=== PATIENT | male | born 1945 | race Caucasian/White ===

== ENCOUNTER → 2017-02-06 | Outpatient (CLI) | payer OTHER ==
[~2017-02-06] MED LIST: ASPIR-LOW81 MG PO; CYCLOBENZAPRINE10 MG PO; FEXOFENADINE H180 MG PO; FLOMAX0.4 MG PO; FLOVENT 110 M110 MCG INH; LAMICTAL100 MG PO; LAMICTAL150 MG PO; LAMICTAL200 MG PO; NORCO 5-325 TA1 EACH PO; PAXIL20 MG PO; PAXIL40 MG PO; PREDNICOT20 MG PO; PREVACID15 MG PO; PREVACID30 MG PO; VERAPAMIL HCL180 M2 PO; ZITHROMAX250 MG PO
== END | disposition home or self-care (01) ==
LOC: RAD 14:24
DX: M51.34 Other intervertebral disc degeneration, thoracic region (principal); M41.84 Other forms of scoliosis, thoracic region

== ENCOUNTER 2018-02-21 10:46 | Inpatient (IN) | payer OTHER ==
[~2018-02-21] VITALS: Ht 177.8 cm; Wt 121.8 kg
--- NOTE | ~2018-02-21 | WRIGHTHP ---
[place], [place] PATIENT HISTORY AND PHYSICAL EXAM NAME: HALILE BANGURA UNIT #: [id number] ROOM: 412 DOCTOR: ABE RAMÍREZ MD BIRTHDATE: [birth year] DOS: 02/21/2018 HISTORY OF PRESENT ILLNESS: This patient is 72 years old. The patient comes to the office with complaints of retrosternal chest pain, felt like a heaviness and also brick-like sensation on his chest, also the discomfort radiated to the left arm. He has had these symptoms periodically for the last 2-3 weeks, but the day of admission, he had persistent discomfort, so he decided to come into the office. He denies having any shortness of breath, any palpitations, any abdominal pain, nausea, emesis or gastroesophageal reflux symptoms. He did not take any medications for the above-mentioned complaints. PAST MEDICAL HISTORY: Significant for last hospitalization in 2010 with; 1. Ischemic colitis and GI bleed. 2. Chronic reflux disease. 3. Chronic back pain. 4. Benign hypertension. 5. Gastroesophageal reflux disease. 6. Also history of bronchiolitis. MEDICATIONS: That he is currently on are Flovent 110 one puff daily, aspirin 81 daily, Aricept 5 daily, fexofenadine 180 daily, Lamictal 200 daily, Prevacid 30 daily, Paxil 40 daily, tamsulosin 0.4 mg verapamil 120 daily. SOCIAL HISTORY: Nonsmoker. He lives at home with his . PHYSICAL EXAMINATION: GENERAL: He is awake and alert and oriented, in minimal amount of discomfort because of the chest discomfort. VITAL SIGNS: Graphic trend shows a pressure of 144/70, pulse of 65, respirations 16, temperature 98.7. LUNGS: Diminished breath sounds. No wheezes, rales or rhonchi heard. HEART: Regular. ABDOMEN: Obese, soft, nontender. EXTREMITIES: Without any edema. ASSESSMENT AND PLAN: 1. Precordial chest pain. The patient will be admitted to rule out CA protocol will be ordered. Echocardiogram as well as a Cardiology consultation was obtained. CBC and a basic metabolic panel is ordered. 2. Benign hypertension, controlled. Continue home medications. A lipid profile will be ordered. [place], [place] PATIENT HISTORY AND PHYSICAL EXAM NAME: HALLIE BANGURA UNIT #: [id number] ROOM: [facility] DOCTOR: ABE RAMÍREZ MD BIRTHDATE: [birth year] ABE RAMÍREZ MD CM:HISPHYS:PATIENT HISTORY AND PHYSICAL EXAMINATION [id number] ABE RAMÍREZ MD 03/11/18 0932 interface
--- NOTE | ~2018-02-21 | ST ---
[place], [place] EXERCISE STRESS TEST REPORT NAME: HALLIE BANGURA [facility] #: [id number] UNIT #: [id number] ROOM: 412 DOCTOR: ABE RAMÍREZ MD BIRTHDATE: [birth year] DOS: 02/22/2018 LEXISCAN STRESS TEST REASON FOR STRESS TEST: Evaluation of precordial chest pain. DESCRIPTION OF PROCEDURE: After explaining procedure and obtaining consent, the patient was subjected to Lexiscan infusion of 0.4 mg. Heart rate was 60 with a blood pressure 120/72. EKG showed sinus rhythm, normal axis, nonspecific STs, occasional PVCs. During the stress test, the patient did not have any complaints. Blood pressure and heart rate remained stable. No ST-T wave changes or arrhythmias were seen other than an occasional PVC. The patient after Lexiscan infusion was over was injected with Cardiolite and stress images will be taken. ABE RAMÍREZ MD CM:STRESS:EXERCISE STRESS TEST REPORT [id number] ABE RAMÍREZ MD
--- NOTE | ~2018-02-21 | O ---
[place], [place] OPERATIVE NOTE [id number] UNIT #: [id number] ROOM: 412 DOCTOR: KEYON ZAMORA MD BIRTHDATE: [birth year] DOS: 02/22/2018 INDICATIONS: A 72-year-old patient who has presented with dysphagia, undergoing investigation. The patient has had difficulty even with liquid at times. PROCEDURE: Today's procedure part of investigation is panendoscopy plus esophageal balloon dilation to size 18. PREMEDICATION: Propofol. SCOPE: Olympus forward-viewing gastroscope Q10 video. REPORT: After putting the patient in left lateral position and application of lubricant to the scope, the scope was introduced. Thereafter, under direct visualization, advanced through the length of esophagus without difficulty. Esophagus, cervical, thoracic distal generalized the stricture of the esophagus and narrow esophagus noticed. Gastric pouch was entered after passing through a small hiatal hernia, gastritis seen. Antral biopsy obtained. Duodenal bulb, second and third part within normal limit. A balloon size 18 was utilized and meticulously sweep along the entire length of esophagus, particularly upper esophagus resistance was experienced and the patient extubated after procedure. Esophagus was inspected. IMPRESSION: Generalized esophageal stricture, status post balloon dilation to size 18, small hiatal hernia, gastritis. PLAN AND DISCUSSION: PPI 40 mg, Protonix every day, antireflux with elevation of the head of the bed 6 inch all time and clinical reassessment. KEYON ZAMORA MD CM:OPRECORD:OPERATIVE NOTE [id number] KEYON ZAMORA MD 02/22/18 1702 interface
--- NOTE | ~2018-02-21 | CON ---
[place], [place] REPORT OF CONSULTATION [id number] UNIT #: [id number] ROOM: 412 DOCTOR: NOAH VELASCOKEYON BIRTHDATE: [birth year] DOS: 02/22/2018 GASTROENDOSCOPIC REPORT HISTORY OF PRESENT ILLNESS: A 73-year-old patient who has presented with chief complaint of atypical chest pain, solid food dysphagia and I have been asked for assessment of the patient in this regard. The patient had a panel of blood work done including troponins x 3; they were all negative. The patient's echocardiogram was done and the left ventricle is normal size and left ventricular ejection fraction 65. Echocardiogram essentially unremarkable. CBC: White blood cell was 9, H and H of 15 and 44, platelets 206. Basic metabolic panel, GFR greater than 60. BUN and creatinine within normal limits. Glucose 96. Electrolytes balanced. PAST MEDICAL HISTORY: Obesity, chronic back pain, hypertension, history of ischemic colitis and bleed in the past, gastroesophageal reflux, and history of bronchitis. MEDICATIONS: List has been reviewed. SOCIAL HISTORY: Nonsmoker, nonalcohol consumer. PAST SURGICAL HISTORY: Unremarkable. ALLERGIES: To no known medication. FAMILY HISTORY: Noncontributory. REVIEW OF SYSTEMS: HEENT: Denies double vision, blurred vision. RESPIRATORY: Denies shortness of breath acutely. CARDIOVASCULAR: Denies chest pain acutely and troponin has been negative. DIGESTIVE SYSTEM: Dysphagia to solid and liquid food anymore. PHYSICAL EXAMINATION: VITAL SIGNS: Stable. HEENT: Head: Normocephalic, nontraumatic. Eyes: Pupil round, reactive. Sclerae nonicteric. Conjunctivae pink. Nose: Nonobstructed, nondeviated. Mouth: Free of aphthoid ulcer or thrush. NECK: Supple, no thyromegaly, no cervical lymphadenopathy. CHEST: Symmetric anatomy, decreased air entry bilaterally. No wheeze, no rhonchi. HEART: Normal sinus rhythm, no gallop, no murmur. ABDOMEN: Obese, soft. No hepato-organomegaly. Bowel sounds present. EXTREMITIES: No cyanosis, no pedal edema. NEUROLOGIC: Alert, oriented to time, place, person. IMPRESSION: Atypical chest pain, dysphagia history; otherwise, gastroesophageal reflux, bronchitis, chronic back pain, hypertension, old history of ischemic colitis. [place], [place] REPORT OF CONSULTATION NAME: HALLIE BANGURA UNIT #: [id number] ROOM: 412 DOCTOR: NOAH VELASCO,KEYON BIRTHDATE: [birth year] PLAN AND DISCUSSION: We are going to organize an EGD dilation today. KEYON ZAMORA MD CM:CONSTR:REPORT OF CONSULTATION 1453 02/23/18 0210 interface
--- NOTE | ~2018-02-21 | CON ---
[place], [place] REPORT OF CONSULTATION NAME: HALLIE BANGURA UNIT #: [id number] ROOM: 412 DOCTOR: AMERICO WHITE MD BIRTHDATE: [birth year] DOS: 02/22/2018 HISTORY OF PRESENT ILLNESS: This is a very pleasant 72-year-old -[place] man who is somewhat hard of hearing. His daughter was present when I talked to the patient. He has essential hypertension, GERD and also had ischemic colitis with GI bleeding in the remote past, chronic back pain, depression and BPH. He has never had a heart attack, heart failure, any rhythm disorder of the heart, stroke, cancer, COPD. He does not know his cholesterol level. The patient is a reasonably active gentleman who had been well until about 2 weeks ago when he began to notice some pressure-like feeling in the retrosternal area, at times radiating into the left upper arm. The feeling has recurred many times a day and has lasted up to half an hour. It occurs when he is sitting or doing nothing and it is not particularly precipitated by physical activity. There is no accompanying shortness of breath, sweating, nausea, palpitations, dizziness or loss of consciousness. He has not had any previous PND or swelling of the lower extremities. He does have sleep apnea and uses CPAP at night. SOCIAL HISTORY: He quit smoking in 1974. Does not use alcoholic beverages. Lives at home. ALLERGIES: He has no known drug allergies. HOME MEDICATIONS: Aspirin 81 daily, Aricept 5 mg daily, fexofenadine 180 mg daily, Lamictal 200 mg daily, Prevacid 30 mg daily, Paxil 40 mg daily, Flomax 0.4 mg daily and verapamil 1 mg daily and also Flovent HFA daily. PHYSICAL EXAMINATION: GENERAL: This reveals a patient who is moderately obese. He is pleasant, alert, comfortable. He is not cyanotic, not jaundiced. There is no thyromegaly or finger clubbing. VITAL SIGNS: Pulse is 66 regular, blood pressure 144/70. NECK: Normal JVP. No bruit in the neck. HEART: There is no cardiomegaly, no murmurs are present. EXTREMITIES: Excellent pedal pulses and no edema of the lower extremity. RESPIRATORY: Not tachypneic. Percussion note is normal. Auscultation reveals good breath sounds without any adventitious sound. ABDOMEN: Large, supple. Normal bowel sounds. DIAGNOSTIC STUDIES: EKG is in patient's chart which is not available to me. Troponin I level is normal. IMPRESSION: This patient with very few risk factors for coronary artery disease, has atypical symptoms of myocardial ischemia. He has ruled out for acute myocardial infarction and you have already performed a Lexiscan Cardiolite study, which was very appropriate. I will review the images and further recommendations will depend on the findings. He is to have EGD. As far as I am concerned that can be done safely and one [place], [place] REPORT OF CONSULTATION NAME: HALLIE BANGURA UNIT #: [id number] ROOM: 412 DOCTOR: AMERICO WHITE MD BIRTHDATE: [birth year] does not need to wait for echocardiogram findings or nuclear report. I thank you for this consult. AMERICO WHITE MD CM:CONSTR:REPORT OF CONSULTATION 0750 02/22/181 interface
[2018-02-21] MEDS ORDERED: PREVACID30 M2 PO (10:58)
[2018-02-21] MEDS ORDERED: ARICEPT5 M1 PO (10:59)
[2018-02-21] MEDS ORDERED: VERAPAMIL HCL120 M1 PO (10:59)
[2018-02-21 11:00] VITALS: BP 153/66
[2018-02-21 12:00] VITALS: BP 153/66
[2018-02-21 16:00] VITALS: BP 133/60
[2018-02-21 20:00] VITALS: BP 167/80
[2018-02-22] VITALS (9 sets, daily range): BP systolic 105–147; BP diastolic 49–83
[2018-02-22 10:08] LABS: BASO # 0.1 10*3/uL (0.0-0.1); BASO % 0.6 % (0.0-1.0); EOS # 0.1 10*3/uL (0.0-0.4); EOS % 1.4 % (1.0-4.0); HEMATOCRIT 44.4 % (42.0-52.0); HEMOGLOBIN 15.1 g/dl (14.0-18.0); LYMPH # 1.9 10*3/uL (1.3-4.4); LYMPH % 19.5 % (27.0-41.0); MEAN CELL VOLUME 88.4 fl (80.0-94.0); MEAN CORPUSCULAR HGB 30.1 pg (27.0-31.0); MEAN PLATELET VOLUME 9.2 fl (9.6-12.3); MONO # 1.1 10*3/uL (0.1-1.0); MONO % 10.8 % (3.0-9.0); NEUT # 6.5 10*3/uL (2.3-7.9); NEUT % 67.4 % (47.0-73.0); PLATELET COUNT AUTOMATED 206 10*3/uL (130-400); RED BLOOD COUNT 5.02 10*6/uL (4.50-5.90); RED CELL DISTRI WIDTH 13.7 % (0-14.5); WHITE BLOOD COUNT 9.7 10*3/uL (4.8-10.8)
[2018-02-22] MEDS ORDERED: ATENOLOL25 MG PO (10:25)
[2018-02-22] MEDS ORDERED: IMDUR SA30 MG PO (10:25)
[2018-02-22 10:34] LABS: BUN 14 mg/dl (7-24); CHLORIDE 107 mmol/L (98-107); CREATININE 1.09 mg/dL (0.70-1.30); POTASSIUM 3.8 mmol/L (3.5-5.1); SODIUM 142 mmol/L (136-145)
[2018-02-22 10:35] LABS: CREATININE 1.07 mg/dL (0.70-1.30)
[2018-02-22 10:38] LABS: CHOLESTEROL 156 mg/dL (<200); HDL CHOLESTEROL 31 mg/dl (40-60); LDL CHOLESTEROL 98 mg/dL (9-159); TRIGLYCERIDES 137 mg/dl (<150); VLDL CHOLESTEROL 27 mg/dL (6-40)
== END 2018-02-22 17:53 | disposition home or self-care (01) | DRG 392 ==
LOC: 4E 10:46
PROVIDERS: Internal Medicine
PROC: 4A02XM4 Measurement of Cardiac Total Activity, External Approach (ICD-10-PCS; principal; 2018-02-22)
PROC: 0D758ZZ Dilation of Esophagus, Via Natural or Artificial Opening Endoscopic (ICD-10-PCS; principal; 2018-02-22)
PROC: 3E073KZ Introduction of Other Diagnostic Substance into Coronary Artery, Percutaneous Approach (ICD-10-PCS; principal; 2018-02-22)
PROC: 0DB68ZX Excision of Stomach, Via Natural or Artificial Opening Endoscopic, Diagnostic (ICD-10-PCS; principal; 2018-02-22)
DX: K21.9 Gastro-esophageal reflux disease without esophagitis (principal); K22.2 Esophageal obstruction; K29.70 Gastritis, unspecified, without bleeding; R07.89 Other chest pain; F32.9 Major depressive disorder, single episode, unspecified; N40.0 Benign prostatic hyperplasia without lower urinary tract symptoms; K44.9 Diaphragmatic hernia without obstruction or gangrene; G89.29 Other chronic pain; I10 Essential (primary) hypertension; M54.9 Dorsalgia, unspecified; Z79.82 Long term (current) use of aspirin; Z79.899 Other long term (current) drug therapy

== ENCOUNTER 2018-09-19 18:46 | Inpatient (IN) | payer OTHER ==
[~2018-09-19] VITALS: Ht 177.8 cm; Wt 125.8 kg
--- NOTE | ~2018-09-19 | EKG ---
[place], [place] ELECTROCARDIOGRAM REPORT NAME: HALLIE BANGURA UNIT #: [id number] ROOM: 420 DOCTOR: CORAZON DRAFT REPORT BIRTHDATE: [birth year] [facility] Test Date: 2018-09-19 Test Time: 21:43:02 Pat Name: HALLIE BANGURA Department: Room: 420 Gender: M Ambulance Dispatcher: Rhett Pond : 1945 Requested By: MELODY CHAVEZ Order Number: [id number] Reading MD: Rhett Montes MD Measurements Intervals [place] Rate: 55 P: 32 VT: 205 QRS: -24 QRSD: 98 T: 50 QT: 430 QTc: 412 Interpretive Statements Sinus rhythm Borderline left axis deviation Abnormal R-wave progression, early transition Minimal ST depression, lateral leads No change from earlier ECG this date Electronically Signed On 09-20-2018 8:54:21 PST by Rhett Montes MD CM:EKGRPT:ELECTROCARDIOGRAM REPORT [id number] MELODY CHANDRA DRAFT REPORT MELODY CHAVEZ M.D.
--- NOTE | ~2018-09-19 | ST ---
[place], [place] EXERCISE STRESS TEST REPORT [id number] UNIT #: [id number] ROOM: 420 DOCTOR: RAOUL COMER MD BIRTHDATE: [birth year] DOS: 09/20/2018 LEXISCAN CARDIAC STRESS TEST The patient is a 73-year-old gentleman presently admitted to [facility] for recurrent chest pains. All cardiac enzymes are normal. The patient was injected with Lexiscan 0.4 mg IV and 40 seconds later the patient was given Cardiolite injection. The patient's baseline EKG showed normal sinus rhythm with a heart rate of 70 beats per minute, normal cardiac axis, no significant ST-T abnormality. During the testing phase and recovery, the patient did not develop any significant EKG abnormality compatible with myocardial ischemia. The patient did experience some shortness of breath after Lexiscan injection. No significant cardiac dysrhythmias were observed on the monitoring tech. IMPRESSION: Normal EKG part of the Lexiscan Cardiolite stress test. The patient's blood pressure and heart rates remaining normal with normal range. Nuclear scan results to be reported by Dr. Montes later today. The test was performed because of precordial chest pains. RAOUL COMER MD CM:STRESS:EXERCISE STRESS TEST REPORT [id number] RAOUL COMER MD
--- NOTE | ~2018-09-19 | DS ---
[place], [place] DISCHARGE SUMMARY NAME: HALLIE BANGURA UNIT #: [id number] ROOM: 420 DOCTOR: RAOUL COMER MD BIRTHDATE: [birth year] DOS: 09/20/2018 DISCHARGE DIAGNOSES: 1. Chest pains with minimal patricia-infarct ischemia on cardiac stress test performed today. Heart catheterization was not recommended by Dr. Montes. 2. Negative cardiac enzymes. 3. Ischemic colitis and GI bleed history. 4. History of prostatism. 5. History of gastroesophageal reflux disease and esophagitis. 6. Chronic back pain. 7. Benign essential hypertension. 8. History of asthma. 9. POLLEN allergies. 10. Late onset Alzheimer's type dementia. 11. Benign prostatic hypertrophy and urinary retention. HOSPITAL COURSE: 1. The patient presented with recurrent chest pains off and on for the last couple of weeks, lasting up to a few hours and all his cardiac enzymes after admission were negative. These chest pains appeared noncardiac in nature and the patient was taken for a cardiac stress test, which showed very mild patricia-infarct ischemia as mentioned above. The patient is being discharged to home. After discussing the case with Dr. Montes, who did not recommend a heart catheterization at this time, just maximizing medical treatment. 2. Generalized anxiety disorder, treated with hydroxyzine as needed. 3. Benign prostatic hyperplasia and urinary retention, asymptomatic with Flomax. 4. Benign essential hypertension. The patient on atenolol. Blood pressure treated and controlled. 5. History of coronary artery disease of the [place] vessels. The patient without chest pains after admission. The patient asked to follow up with his PCP, Dr. Kinsey Torres and his senior major gifts officer, Dr. Orozco as an outpatient. [place], [place] DISCHARGE SUMMARY NAME: HALLIE BANGURA UNIT #: [id number] ROOM: 420 DOCTOR: RAOUL COMER MD BIRTHDATE: [birth year] RAOUL COMER MD CM:DISCHARG [id number] RAOUL COMER MD 09/21/18 7269 interface
--- NOTE | ~2018-09-19 | EKG ---
[place], [place] ELECTROCARDIOGRAM REPORT NAME: HALLIE BANGURA UNIT #: [id number] ROOM: 420 DOCTOR: CORAZON DRAFT REPORT BIRTHDATE: [birth year] [facility] Test Date: 2018-09-19 Test Time: 18:51:42 Pat Name: HALLIE BANGURA Department: Room: 420 Gender: M Personal Insurance Advisor: Rhett Pond : 1945 Requested By: MELODY CHAVEZ Order Number: [id number] Reading MD: Rhett Montes MD Measurements Intervals [place] Rate: 64 P: 43 [place]: 199 QRS: -27 QRSD: 99 T: 25 QT: 410 QTc: 423 Interpretive Statements Sinus rhythm Borderline left axis deviation Abnormal R-wave progression, early transition Borderline T wave abnormalities Baseline wander in lead(s) III,aVL,aVF,V5 Electronically Signed On 09-20-2018 8:44:45 PST by Rhett Montes MD CM:EKGRPT:ELECTROCARDIOGRAM REPORT [id number] MELODY CHANDRA DRAFT REPORT MELODY CHAVEZ M.D.
--- NOTE | ~2018-09-19 | WRIGHTHP ---
[place], [place] PATIENT HISTORY AND PHYSICAL EXAM NAME: HALLIE BANGURA [facility] #: [id number] UNIT #: [id number] ROOM: 420 DOCTOR: RAOUL COMER MD BIRTHDATE: [birth year] DOS: HISTORY OF PRESENT ILLNESS: The patient is a 73-year-old gentleman with a past medical history of; 1. Ischemic colitis and gastrointestinal bleed. 2. History of prostatism. 3. Gastroesophageal reflux disease and esophagitis. 4. Chronic back pains. 5. Benign essential hypertension. 6. History of asthma. 7. POLLEN allergies. 8. Alzheimer's type dementia. 9. BPH and urinary retention. The patient presented to the Emergency Department with precordial chest pains happening off and on for last couple of weeks. The patient's initial set of cardiac enzymes were negative and he was admitted to [facility] for further evaluation. After admission, he has been asymptomatic and his cardiac enzymes were all negative. The patient underwent cardiac stress testing this morning, results of which are pending. REVIEW OF SYSTEMS: RESPIRATORY: No increasing shortness of breath. GASTROINTESTINAL: No nausea, vomiting, diarrhea or constipation. CARDIOVASCULAR SYSTEM: Recurrent left-sided precordial chest pains. FAMILY HISTORY: Noncontributory. SOCIAL HISTORY: Denies smoking cigarettes, alcohol and drug abuse. ALLERGIES: No known drug allergies. PHYSICAL EXAMINATION: GENERAL: Alert, oriented x 3, obese with a BMI of 39.7. HEENT AND NECK: Extraocular movements are intact. Sclerae are anicteric. Oral mucosa is moist and clean. No obvious facial weakness. Neck is supple without any lymphadenopathy. No thyromegaly. No JVD. No carotid arterial bruits. LUNGS: Clear to auscultation. No wheezing. No rhonchi. CARDIOVASCULAR SYSTEM: Heart rate is regular in rate and rhythm. S1 and S2 normally audible. No significant murmur or any other abnormal cardiac sounds. ABDOMEN: Soft, nontender. No obvious organomegaly. Bowel sounds are present. No obvious herniation. EXTREMITIES: Without significant cyanosis or edema. Warm to touch. CENTRAL NERVOUS SYSTEM: Alert and oriented x 3. Cranial nerves II-XII are intact. Speech is normal. The patient is able to move all extremities. Normal muscle strength. Deep tendon reflexes are equal on both sides. Plantars were downgoing. IMPRESSION: 1. The patient with recurrent chest pains from uncertain etiology. He is [place], [place] PATIENT HISTORY AND PHYSICAL EXAM [facility]: [id number] UNIT #: [id number] ROOM: 420 DOCTOR: RAOUL COMER MD BIRTHDATE: [birth year] definitely at high risk for coronary artery disease because of his age of 73, being a male and having history of hypertension. The patient underwent Lexiscan Cardiolite stress test and after results become available, we will decide whether he needs a heart catheterization or he can be safely discharged to home. 2. Benign essential hypertension. The patient remains on atenolol. Blood pressure is being monitored and treated. 3. Generalized anxiety disorder, treated with hydroxyzine. The patient also takes lamotrigine. 4. Benign prostatic hyperplasia and urinary retention, asymptomatic with Flomax, which was continued. RAOUL COMER MD CM:HISPHYS:PATIENT HISTORY AND PHYSICAL EXAMINATION 1050 [id number] RAOUL COMER MD 09/20/18 1101 interface
--- NOTE | ~2018-09-19 | EKG ---
[place], [place] ELECTROCARDIOGRAM REPORT NAME: HALLIE BANGURA UNIT #: [id number] ROOM: 420 DOCTOR: CORAZON DRAFT REPORT BIRTHDATE: [birth year] [facility] Test Date: 2018-09-20 Test Time: 00:33:12 Pat Name: HALLIE BANGURA Department: Room: 420 Gender: M Stencil Inspector: Rhona Garcia : 1945 Requested By: MELODY CHAVEZ Order Number: [id number] Reading MD: Rhett Montes MD Measurements Intervals [place] Rate: 65 P: 29 [place]: 198 QRS: -22 QRSD: 102 T: 19 QT: 425 QTc: 442 Interpretive Statements Sinus rhythm Abnormal R-wave progression, early transition Borderline repolarization abnormality No change from 09/19/18 Electronically Signed On 09-20-2018 19:26:10 PST by Rhett Montes MD CM:EKGRPT:ELECTROCARDIOGRAM REPORT 25 MELODY CHANDRA DRAFT REPORT MELODY CHAVEZ M.D.
[~2018-09-19 18:46] MED LIST changes: +ARICEPT5 M1 PO; +ATENOLOL25 MG PO; +IMDUR SA30 MG PO; +PREVACID30 M2 PO; +VERAPAMIL HCL120 M1 PO
[2018-09-19 18:55] VITALS: BP 110/64
[2018-09-19 19:02] LABS: BASO # 0.1 10*3/uL (0.0-0.1); BASO % 0.4 % (0.0-1.0); EOS # 0.2 10*3/uL (0.0-0.4); EOS % 1.9 % (1.0-4.0); HEMATOCRIT 50.4 % (42.0-52.0); HEMOGLOBIN 17.1 g/dl (14.0-18.0); LYMPH # 1.7 10*3/uL (1.3-4.4); LYMPH % 14.3 % (27.0-41.0); MEAN CELL VOLUME 88.6 fl (80.0-94.0); MEAN CORPUSCULAR HGB 30.1 pg (27.0-31.0); MEAN CORPUSCULAR HGB CONC 33.9 g/dl (33.0-37.0); MEAN PLATELET VOLUME 9.3 fl (9.6-12.3); MONO # 1.1 10*3/uL (0.1-1.0); MONO % 8.9 % (3.0-9.0); NEUT # 8.9 10*3/uL (2.3-7.9); PLATELET COUNT AUTOMATED 250 10*3/uL (130-400); RED BLOOD COUNT 5.69 10*6/uL (4.50-5.90); RED CELL DISTRI WIDTH 13.8 % (0-14.5)
[2018-09-19] MEDS ORDERED: LAMICTAL200 MG PO (19:14)
[2018-09-19] MEDS ORDERED: ZYRTEC10 M3 PO (19:14)
[2018-09-19] MEDS ORDERED: HYDROXYZINE PAM25 M1 PO (19:14)
[2018-09-19] MEDS ORDERED: VENTOLIN 02.5 MG/3 M INH (19:15)
[2018-09-19 19:25] LABS: ALBUMIN 3.5 gm/dl (3.1-4.5); ALKALINE PHOSPHATASE 155 U/L (45-117); BUN 16 mg/dl (7-24); CHLORIDE 108 mmol/L (98-107); CREATININE 1.16 mg/dL (0.70-1.30); SGOT/AST 10 IU/L (3-35); SGPT/ALT 18 U/L (12-78); SODIUM 142 mmol/L (136-145); TOTAL PROTEIN 7.3 gm/dL (6.4-8.2)
[2018-09-19 19:31] LABS: TROPONIN I < 0.015 ng/ml (<0.045)
[2018-09-19 20:09] VITALS: BP 115/60
[2018-09-19 21:00] VITALS: BP 122/47
--- NOTE | 2018-09-19 22:01 | NUR ---
A 73, admitted to 4E, under the services of Dr. NAHOMI VELASCO,RAOUL Huber with a diagnosis of CHEST PAIN. Chief complaint is CHEST PAIN. Patient arrived via ambulatory from ER. Monitor applied. Initial assessment completed. Vital signs taken and recorded. DR. NAHOMI VELASCO,RAOUL Huber notified of admission to the unit. Orders received. See assessment for past medical history, medications and allergies. Patient and/or family oriented to unit. [facility] visitation policy reviewed. Clothing/patient valuable form completed. GILMER MAE
[2018-09-20] VITALS: BP 128/55
[2018-09-20 08:15] VITALS: BP 132/60
--- NOTE | 2018-09-20 09:00 | NUR ---
DR RAMÍREZ HERE AT THIS TIME, STATES PT HAD AMILDLY POSITIVE STRESS IN FEBRUARY AND RECCOMENDS PT TO SEE DR WHITE AND POSSIBLE CATH, WOULD LIKE INFORMATION RELAYED TO DR COMER. DR COMER INFORMED.
--- NOTE | 2018-09-20 09:00 | NUR ---
Wax Pattern Assembler in to talk to patient. Patient states lives at home with his . There are 0 steps in the home. Physician: Dr. Kinsey Torres Pharmacy: [facility] Home health services: none Patient's level of ADLs: INDEPENDENT Patient has working utilities: yes DME: nebulizer, c-pap Follow-up physician's appointment after d/c: he prefers to make his own follow up appt after discharge Does patient want to access PORTAL?: no Discharge plan discussed with patient. He lives at home with his and his son and daughter living right up the road. He is independent in his ADLs and ambulation. Discussed home health care services and he denies any home needs at this time. When medically stable he will be discharged to home. PEMA HDZ
--- NOTE | 2018-09-20 09:40 | NUR ---
PT OFF FLOOR AT THIS TIME FOR STRESS TEST.
--- NOTE | 2018-09-20 10:00 | NUR ---
INFORMED SIGNED CONSENT OBTAINED FOR LEXISCAN STRESS TEST WITH DR COMER. RESTING HE NSR HR 70 BP 122/80, PULSE OX 96% LUNGS CLEAR. PT COMPLETED ONE MINUTE OF A LEXISCAN PROTOCOL WITH PT RECEIVING LEXISCAN 0.4MG IV OVER 10 SECONDS. NO ARRHYTHMIAS OR ST CHANGES NOTED. [T C/O SOB WITH INJECTION. LAST RECOVERY HR OF 80 BP 118/60. PT IN STABLE CONDITION, AWAITING NUCLEAR IMAGES.
--- NOTE | 2018-09-20 12:15 | NUR ---
PT RETURNED FROM STRESS TEST AT THIS TIME.
[2018-09-20 15:00] VITALS: BP 127/49
--- NOTE | 2018-09-20 19:38 | NUR ---
Discharge instructions reviewed with patient/family. Patient receptive and verbalizes understanding. Follow-up care arranged. Written instructions given to patient/family. CASSANDRA MARSHALL
[2019-01-23] MEDS ORDERED: NORCO 5-325 TA1 EACH PO (08:36)
== END 2018-09-20 19:38 | disposition home or self-care (01) | DRG 313 ==
LOC: ED 18:46 → EDHOLD 19:39 → 4E 19:39
PROVIDERS: Emergency Medicine; ADMIT Internal Medicine
PROC: 3E073KZ Introduction of Other Diagnostic Substance into Coronary Artery, Percutaneous Approach (ICD-10-PCS; principal; 2018-09-20)
PROC: 4A02XM4 Measurement of Cardiac Total Activity, External Approach (ICD-10-PCS; principal; 2018-09-20)
DX: R07.89 Other chest pain (principal); I25.9 Chronic ischemic heart disease, unspecified; K21.0 Gastro-esophageal reflux disease with esophagitis; F41.1 Generalized anxiety disorder; I25.10 Atherosclerotic heart disease of native coronary artery without angina pectoris; M54.9 Dorsalgia, unspecified; G89.29 Other chronic pain; I10 Essential (primary) hypertension; J45.909 Unspecified asthma, uncomplicated; G30.1 Alzheimer's disease with late onset; F02.80 Dementia in other diseases classified elsewhere, unspecified severity, without behavioral disturbance, psychotic disturbance, mood disturbance, and anxiety; N40.1 Benign prostatic hyperplasia with lower urinary tract symptoms; R33.8 Other retention of urine; Z91.048 Other nonmedicinal substance allergy status

== ENCOUNTER → 2019-01-23 | Day surgery (SDC) | payer OTHER ==
[~2019-01-23] VITALS: Ht 177.8 cm; Wt 124.7 kg
[~2019-01-23] MED LIST changes: +HYDROXYZINE PAM25 M1 PO; +VENTOLIN 02.5 MG/3 M INH; +ZYRTEC10 M3 PO
--- NOTE | ~2019-01-23 | PROC NOTE ---
[place], [place] PROCEDURE NOTE NAME: HALLIE BANGURA [facility] #: [id number] UNIT #: [id number] ROOM: DOCTOR: PAIGE LOREDO MD BIRTHDATE: [birth year] DOS: 01/23/2019 PREOPERATIVE DIAGNOSIS: Left postauricular scalp lesion. POSTOPERATIVE DIAGNOSIS: Left postauricular scalp lesion. PROCEDURE: Excision of left postauricular scalp lesion. SURGEON: Paige Loredo MD CLINICAL PROJECT COORDINATOR: ARAMIS. ANESTHESIA: Local (1% lidocaine with epinephrine). INDICATIONS: This is a 73-year-old gentleman with a history of longstanding left postauricular scalp lesion is here for the above-mentioned procedure. The procedure and its complications were explained to the patient in detail. Complications that were discussed included but were not limited to bleeding, infection, hematoma/seroma/abscess formation and prolonged pain. He agreed to proceed. DESCRIPTION OF PROCEDURE: After identifying the patient, the patient was brought to the procedure room and placed in the right lateral position. After time-out procedure was called, the parts were painted and draped in the usual sterile fashion. An elliptical incision was marked and local anesthesia was infiltrated in the line of the incision. Incision was made with the help of a knife and deepened in layers until the entire lesion was removed and sent for histopathological diagnosis. Hemostasis was achieved with the help of electrocautery. Thereafter, the edges of the skin were approximated with the help of 4-0 Vicryl in a subcuticular fashion and dressing was placed. The patient tolerated the procedure well and brought back to the recovery room in a stable fashion. There were no complications. Dr. Paige Loredo, the attending surgeon, was present throughout the operating case. Paige Loredo MD CM:PROCNOTE:PROCEDURE NOTE [id number] PAIGE LOREDO MD
[2019-01-23 07:43] VITALS: BP 148/64
[2019-01-23 08:25] VITALS: BP 113/50
[2019-01-23 08:30] VITALS: BP 118/50
[2019-01-23 08:42] VITALS: BP 113/50
== END | disposition home or self-care (01) ==
LOC: SDC 01-21 11:00
DX: L57.0 Actinic keratosis (principal); I10 Essential (primary) hypertension; F32.9 Major depressive disorder, single episode, unspecified; F41.9 Anxiety disorder, unspecified; J44.9 Chronic obstructive pulmonary disease, unspecified; K21.9 Gastro-esophageal reflux disease without esophagitis; M19.90 Unspecified osteoarthritis, unspecified site; Z98.890 Other specified postprocedural states; Z79.82 Long term (current) use of aspirin; Z79.899 Other long term (current) drug therapy; Z88.7 Allergy status to serum and vaccine; Z87.891 Personal history of nicotine dependence; Z80.0 Family history of malignant neoplasm of digestive organs

== ENCOUNTER → 2019-05-16 | Outpatient (CLI) | payer OTHER ==
[~2019-05-16] MED LIST changes: +CYMBALTA30 MG PO; +NATURE'S BLEND F1 MG PO; +VENTOLIN INH; +VITAMIN D50000 UNIT PO
[2019-05-16 14:14] LABS: BASO % 0.4 % (0.0-1.0); EOS # 0.2 10*3/uL (0.0-0.4); EOS % 1.8 % (1.0-4.0); HEMATOCRIT 49.7 % (42.0-52.0); HEMOGLOBIN 16.7 g/dl (14.0-18.0); LYMPH # 1.7 10*3/uL (1.3-4.4); MEAN CELL VOLUME 88.3 fl (80.0-94.0); MEAN CORPUSCULAR HGB 29.7 pg (27.0-31.0); MEAN CORPUSCULAR HGB CONC 33.6 g/dl (33.0-37.0); MEAN PLATELET VOLUME 9.3 fl (9.6-12.3); MONO # 0.8 10*3/uL (0.1-1.0); MONO % 7.9 % (3.0-9.0); NEUT # 7.8 10*3/uL (2.3-7.9); NEUT % 73.4 % (47.0-73.0); PLATELET COUNT AUTOMATED 246 10*3/uL (130-400); RED BLOOD COUNT 5.63 10*6/uL (4.50-5.90); RED CELL DISTRI WIDTH 14.3 % (0-14.5); WHITE BLOOD COUNT 10.6 10*3/uL (4.8-10.8)
[2019-05-16 14:45] LABS: ALBUMIN 3.4 gm/dl (3.1-4.5); ALKALINE PHOSPHATASE 141 U/L (45-117); BUN 13 mg/dl (7-24); CHLORIDE 104 mmol/L (98-107); CHOLESTEROL 163 mg/dL (<200); CREATININE 1.16 mg/dL (0.70-1.30); FREE T4 0.76 ng/dl (0.76-1.46); HDL CHOLESTEROL 34 mg/dl (40-60); LDL CHOLESTEROL 104 mg/dL (9-159); POTASSIUM 4.2 mmol/L (3.5-5.1); SGOT/AST 11 IU/L (3-35); SGPT/ALT 18 U/L (12-78); SODIUM 138 mmol/L (136-145); TOTAL PROTEIN 7.2 gm/dL (6.4-8.2); TRIGLYCERIDES 123 mg/dl (<150); VLDL CHOLESTEROL 25 mg/dL (6-40)
[2019-05-16 15:57] LABS: VITAMIN D, 25-HYDROXY 20.3 ng/mL (30-100)
== END | disposition home or self-care (01) ==
LOC: LAB 13:34
PROVIDERS: Internal Medicine
DX: Z13.1 Encounter for screening for diabetes mellitus (principal); I10 Essential (primary) hypertension; E78.2 Mixed hyperlipidemia; E55.9 Vitamin D deficiency, unspecified

== ENCOUNTER 2019-06-07 16:04 | Inpatient (IN) | payer OTHER ==
[~2019-06-07] VITALS: Ht 177.8 cm; Wt 128.7 kg
[~2019-06-07 16:04] MED LIST changes: -CYMBALTA30 MG PO; -NATURE'S BLEND F1 MG PO; -VENTOLIN INH; -VITAMIN D50000 UNIT PO
[2019-06-07 16:05] VITALS: BP 129/52
[2019-06-07 16:31] LABS: BASO # 0.1 10*3/uL (0.0-0.1); BASO % 0.4 % (0.0-1.0); EOS # 0.2 10*3/uL (0.0-0.4); EOS % 1.2 % (1.0-4.0); HEMATOCRIT 46.6 % (42.0-52.0); HEMOGLOBIN 15.2 g/dl (14.0-18.0); LYMPH # 1.2 10*3/uL (1.3-4.4); LYMPH % 7.2 % (27.0-41.0); MEAN CELL VOLUME 90.5 fl (80.0-94.0); MEAN CORPUSCULAR HGB 29.5 pg (27.0-31.0); MEAN CORPUSCULAR HGB CONC 32.6 g/dl (33.0-37.0); MEAN PLATELET VOLUME 9.6 fl (9.6-12.3); MONO # 1.1 10*3/uL (0.1-1.0); MONO % 6.9 % (3.0-9.0); NEUT # 13.7 10*3/uL (2.3-7.9); NEUT % 83.8 % (47.0-73.0); PLATELET COUNT AUTOMATED 281 10*3/uL (130-400); RED BLOOD COUNT 5.15 10*6/uL (4.50-5.90); RED CELL DISTRI WIDTH 13.9 % (0-14.5); WHITE BLOOD COUNT 16.3 10*3/uL (4.8-10.8)
[2019-06-07 16:46] LABS: ACT PARTIAL THROMBO TIME 40.2 SECONDS (20.0-32.1); INTERNATIONAL NORM RATIO 1.1 (2.0-3.5)
[2019-06-07 17:01] LABS: ALBUMIN 2.8 gm/dl (3.1-4.5); ALKALINE PHOSPHATASE 124 U/L (45-117); BUN 16 mg/dl (7-24); CHLORIDE 105 mmol/L (98-107); CREATININE 1.14 mg/dL (0.70-1.30); POTASSIUM 3.7 mmol/L (3.5-5.1); SGOT/AST 16 IU/L (3-35); SGPT/ALT 18 U/L (12-78); SODIUM 138 mmol/L (136-145); TOTAL PROTEIN 7.3 gm/dL (6.4-8.2)
[2019-06-07 17:03] LABS: TROPONIN I < 0.015 ng/ml (<0.045)
[2019-06-07 18:02] VITALS: BP 135/53
--- NOTE | 2019-06-07 18:10 | NUR ---
A 73, admitted to 5E, under the services of ABE Benítez MD with a diagnosis of LEUKOCYTOSIS, ACUTE BRONCHITIS, ELEVATED TROPONIN. Chief complaint is SHORTNESS OF BREATH, BLACKED OUT W/ COUGH X2, COLD. Patient arrived via ambulatory from ER. Monitor applied. Initial assessment completed. Vital signs taken and recorded. ABE BENÍTEZ MD notified of admission to the unit. Orders received. See assessment for past medical history, medications and allergies. Patient and/or family oriented to unit. [address] visitation policy reviewed. Clothing/patient valuable form completed. MIGUE YEH
[2019-06-07 18:20] VITALS: BP 127/94
[2019-06-07] MEDS ORDERED: NATURE'S BLEND F1 MG PO (18:34)
[2019-06-07] MEDS ORDERED: CYMBALTA30 MG PO (18:34)
[2019-06-07] MEDS ORDERED: VITAMIN D50000 UNIT PO (18:34)
[2019-06-07] MEDS ORDERED: VENTOLIN INH (18:38)
--- NOTE | 2019-06-07 19:00 | NUR ---
PT RESTING IN BED, EYES OPEN, ALERT/ORIENTED AND PLEASANT MOOD. SUPPLEMENTAL OXYGEN IN PLACE. RESPIRATIONS EASY AND UNLABORED.PT DENIES SOB AT THIS TIME. ALL SAFETY MEASURES IN PLACE. CALL LIGHT IN REACH.
[2019-06-07 20:00] VITALS: BP 133/60
--- NOTE | 2019-06-07 20:30 | NUR ---
Hep Lock discontinued to left antecubital due to pt pulling IV catheter out. Site asymptomatic. Pressure applied. Sterile dressing applied. CADEN MACEDO
--- NOTE | 2019-06-07 20:40 | NUR ---
IV started right forearm with #20 protective cath after 1 attempts. Site prepped with Chloroprep. Sterile dressing applied. Patient tolerated procedure well. IV infusing at 60 cc/hr. CADEN MACEDO
--- NOTE | 2019-06-07 22:00 | NUR ---
NOTIFIED DR RAMÍREZ THAT PT LACTIC ACID IS 4.4. PT ALREADY HAS FLUIDS AND ANTIBIOTICS ORDERED. NEW ORDERS RECEIVED TO OBTAIN LACTIC ACID LEVEL IN THE MORNING. WILL CONTINUE TO MONITOR PT.
[2019-06-08] VITALS: BP 144/52
[2019-06-08 06:02] LABS: HEMATOCRIT 43.8 % (42.0-52.0); HEMOGLOBIN 14.6 g/dl (14.0-18.0); MEAN CELL VOLUME 89.6 fl (80.0-94.0); MEAN CORPUSCULAR HGB 29.9 pg (27.0-31.0); MEAN CORPUSCULAR HGB CONC 33.3 g/dl (33.0-37.0); MEAN PLATELET VOLUME 9.7 fl (9.6-12.3); PLATELET COUNT AUTOMATED 265 10*3/uL (130-400); RED BLOOD COUNT 4.89 10*6/uL (4.50-5.90); RED CELL DISTRI WIDTH 13.9 % (0-14.5); WHITE BLOOD COUNT 15.7 10*3/uL (4.8-10.8)
[2019-06-08 06:22] LABS: BUN 18 mg/dl (7-24); CHLORIDE 108 mmol/L (98-107); CREATININE 1.22 mg/dL (0.70-1.30); POTASSIUM 3.7 mmol/L (3.5-5.1); SODIUM 139 mmol/L (136-145)
[2019-06-08 06:39] LABS: PLATELET SUFFICIENCY NORMAL (NORMAL); POLYCHROMASIA SLIGHT; TOTAL CELLS COUNTED 100 #CELLS
--- NOTE | 2019-06-08 10:52 | NUR ---
PT CRITICAL LAB LACTIC ACID 4.[address] RAMÍREZ. NO ORDERS AT THAT TIME. CALLED DR. RAMÍREZ FOR SECOND CRITICAL LACTIC ACID OF 4.5, TELEPHONE ORDER OF IV FLUID INCREAS. SEE ORDERS.
--- NOTE | 2019-06-08 11:53 | NUR ---
CRITICAL RESULT CALLED FROM [facility] AT 1145 GRAM +COCCI IN PAIRS AND CHAINS. NOTIFIED DR. RAMÍREZ, INSTRUCTED TO ORDER IV [facility] TO DOSE.
[2019-06-08 12:00] VITALS: BP 131/51
--- NOTE | 2019-06-08 12:52 | NUR ---
CRITICAL LAB OF LACTIC ACID AT 5.1. NOTIFIED DR. RAMÍREZ. NO CHANGES AT THIS TIME.
[2019-06-08 16:00] VITALS: BP 134/98
[2019-06-08 20:00] VITALS: BP 143/47
--- NOTE | 2019-06-08 20:30 | NUR ---
Neurological: AAOX3 Respiratory: NONLABORED, ROOM AIR Breath sounds: DIMINISHED BILATERALLY Cough: DRY NONPRODUCTIVE COUGH Cardiovascular: HRR, DENIES CP/PRESSURE, NO EDEMA, PPP Gastrointestinal: NORMOACTIVE X4 QUADS, DENIES N/V/D/C, ABD SOFT/NT/OBESE Genito/Urinary: DENIES DYSURIA Musculoskeketal: AMBULATORY W/ SUPERVISION, GAIT UNSTEADY SKIN INTACT PATIENT IS RESTING IN BED WITH EASY AND REGULAR RESPERS ON ROOM AIR. ASSESSMENT IS COMPLETE WITH NO C/O OR S/S OF DISTRESS NOTED AT THIS TIME. BED IS LOW, LOCKED, ALARMED, AND CALL LIGHT IS WITHIN REACH. WILL CONITINUE TO MONITOR. MARITZA PHILIP A
--- NOTE | 2019-06-08 23:10 | NUR ---
PLACED PT. ON CPAP 13, LEFT THE ROOM AND RETURNED WHEN I HEARD THE CPAP ALARMING. PT HAD THE MASK OFF AND WAS ATTEMPTING TO CHANGE THE SETTINGS AND HAD PUT THE MACHINE INTO A DIFFERENT MODE. HE SAID HE WAS TRYING TO CHANGE THE PRESSURE BUT HAD PUSHED THE WRONG BUTTON. I INFORMED HIM THAT THIS MACHINE WAS NOT LIKE HIS AT HOME AND THAT IT COULD DO THINGS HIS HOME MACHINE COULDN`T DO AND THAT HE SHOULD NOT BE CHANGING ANYTHING ON IT. HE INSISTED THAT THE PRESSURE BE ON 12 FROM 13, WHICH HE HAD ALREADY CHANGED. I LEFT IT ON 12 BUT URGED HIM NOT TO ATTEMPT TO CHANGE ANYTHING AGAIN AND IF HE HAD A PROBLEM HAVE THE RN CONTACT ME. RN AWARE.
--- NOTE | 2019-06-08 23:46 | NUR ---
IV discontinued patient removed. Site asymptomatic. Pressure applied. Sterile dressing applied. IV started right hand with #22 angiocath after 1 attempt. The IV site was prepped with Chloraprep. Heparin lock attached. IV solution 0.9NS infusing at 90 mL/hr. Sterile dressing applied. Patient tolerated precedure well. Procedure performed according to [facility] policy & procedure. MARITZA PHILIP
[2019-06-09] VITALS: BP 121/54
--- NOTE | 2019-06-09 04:56 | NUR ---
Patient sleeping. Respirations relaxed and easy. MARITZA PHILIP
--- NOTE | 2019-06-09 05:23 | NUR ---
PATIENT AROUSES EASILY FOR ADMINISTRATION OF AM MEDICATION. CALL LIGHT IS WITHIN REACH.
[2019-06-09 08:00] VITALS: BP 120/58
--- NOTE | 2019-06-09 10:30 | NUR ---
Fisher Seal in to talk to patient. Patient states lives at home with his and son. There are basement steps in the home. Physician: Dr. Kinsey Torres Pharmacy: [facility] Home health services: none Patient's level of ADLs: MINIMAL ASSIST Patient has working utilities: yes DME: cane, c-pap Follow-up physician's appointment after d/c: he prefers to make his own follow up appt after discharge Does patient want to access PORTAL?: no Discharge plan discussed with patient. He lives at home with his and son. He is independent in his ADLs and ambulates with a cane. Discussed home health care services and he denies any home needs at this time. When medically stable he will be discharged to home. His son or daughter will provide transportation on discharge. PEMA HDZ
[2019-06-09 12:00] VITALS: BP 142/61
[2019-06-09 16:00] VITALS: BP 130/65
[2019-06-09 20:00] VITALS: BP 136/61
[2019-06-10] VITALS: BP 138/65
[2019-06-10 05:54] LABS: BUN 21 mg/dl (7-24); CHLORIDE 112 mmol/L (98-107); CREATININE 1.15 mg/dL (0.70-1.30); SODIUM 142 mmol/L (136-145)
[2019-06-10 06:34] LABS: BASO % 0.2 % (0.0-1.0); EOS % 0.1 % (1.0-4.0); HEMATOCRIT 39.6 % (42.0-52.0); LYMPH # 1.1 10*3/uL (1.3-4.4); LYMPH % 6.6 % (27.0-41.0); MEAN CELL VOLUME 91.5 fl (80.0-94.0); MEAN CORPUSCULAR HGB CONC 32.8 g/dl (33.0-37.0); MEAN PLATELET VOLUME 9.5 fl (9.6-12.3); MONO # 0.7 10*3/uL (0.1-1.0); MONO % 4.4 % (3.0-9.0); NEUT # 14.7 10*3/uL (2.3-7.9); NEUT % 87.6 % (47.0-73.0); PLATELET COUNT AUTOMATED 265 10*3/uL (130-400); RED BLOOD COUNT 4.33 10*6/uL (4.50-5.90); RED CELL DISTRI WIDTH 14.6 % (0-14.5); WHITE BLOOD COUNT 16.8 10*3/uL (4.8-10.8)
--- NOTE | 2019-06-10 07:48 | NUR ---
PT ON BIPAP AT THIS TIME
[2019-06-10 08:00] VITALS: BP 154/68
--- NOTE | 2019-06-10 08:20 | NUR ---
DR. RAMÍREZ HERE TO SEE PATIENT.
--- NOTE | 2019-06-10 08:41 | NUR ---
DR. RAYGOZA AWARE OF CONSULT AND HAS ROUNDED.
--- NOTE | 2019-06-10 10:00 | NUR ---
Electrical Machine Builder in to see patient. No new needs or request at this time. He denies any home needs. When medically stable he will be discharged to home. Per multidisciplinary discharge planning meeting Dr. Torres is waiting on the organism from the positive blood cultures to determine antibiotics.
[2019-06-10 12:00] VITALS: BP 132/66
[2019-06-10 16:00] VITALS: BP 142/72
[2019-06-10 20:00] VITALS: BP 155/66
[2019-06-11] VITALS: BP 132/69
--- NOTE | 2019-06-11 | NUR ---
RESTING IN BED WITH EYES CLOSED. IV FLUIDS INFUSING INTO RIGHT ANTECUBITAL WITHOUT DIFFICULTY; SITE ASYMPTOMATIC. PT. VOICES NO C/O AT THIS TIME. CALL LIGHT WITHIN REACH.
--- NOTE | 2019-06-11 02:00 | NUR ---
ASLEEP IN BED WITH BIPAP ON. RESPIRATIONS EASY & UNLABORED. CALL LIGHT REMAINS WITHIN REACH & IV FLUIDS CONTINUE TO INFUSE WITHOUT DIFFICULTY.
--- NOTE | 2019-06-11 07:19 | NUR ---
CALLED DR. RAMÍREZ WITH BLOOD CULTURE RESULTS.
[2019-06-11 08:00] VITALS: BP 114/64
--- NOTE | 2019-06-11 10:00 | NUR ---
Film Replacement Orderer in to see patient. No new needs or request at this time. He denies any home needs. When medically stable he will be discharged to home. Per multidisciplinary discharge planning meeting 1st set of blood cultures were possibly contaminated. Awaiting results of 2nd set of blood cultures. Dr. Zavaleta has been consulted and patient is for a possible bronchoscopy tomorrow.
[2019-06-11 12:00] VITALS: BP 150/59
[2019-06-11 16:00] VITALS: BP 122/49
[2019-06-11 20:00] VITALS: BP 148/58
--- NOTE | 2019-06-11 23:10 | NUR ---
Pt placed on CPAP 12 and an FiO2 of 21%. Alarms on and audible. Call light within reach.
[2019-06-12] VITALS (10 sets, daily range): BP systolic 134–186; BP diastolic 54–96
--- NOTE | 2019-06-12 | NUR ---
PATIENT RESTING ON CPAP. PATIENT AWARE OF BRONCH AND NPO STATUS. DENIES ANY PROBLEMS AT THIS TIME. WILL MONITOR.
--- NOTE | 2019-06-12 02:58 | NUR ---
24 HR chart check completed.
--- NOTE | 2019-06-12 10:00 | NUR ---
Health Professional in to see patient. No new needs or request at this time. He denies any home needs. When medically stable he will be discharged to home. Per multidisciplinary discharge planning meeting patient is scheduled for a bronchoscopy today and Dr. Torres is waiting until the bronchoscopy results come back prior to discharge.
--- NOTE | 2019-06-12 10:15 | NUR ---
PATIENT RETURNED FROM SURGERY S/P BRONCHOSCOPY. PATIENT VERY DIAPHROETIC. HACKY COUGH. BLOOD PRESSURE 150/82. POX 93% RA. WILL CONTINUE TO MONITOR.
--- NOTE | 2019-06-12 11:30 | NUR ---
PATIENT RESTING QUIETLY. NO FURTHER COUGHING EPISODES NOTED. PATIENT IS NOT DIAPHORETIC ANYMORE. WILL CONTINUE TO MONITOR.
--- NOTE | 2019-06-12 20:00 | NUR ---
PATIENT SITTING UP IN BED, VISITORS AT BEDSIDE, PATIENT DENIES ANY NEEDS AT THIS TIME. PATIENT STATED HE FELT MUCH BETTER AND IS HOPING TO GO HOME SOON. PATIENT LEFT WITH CALL LIGHT IN REACH.
[2019-06-13] VITALS: BP 155/83
--- NOTE | 2019-06-13 08:00 | NUR ---
BEDSIDE REPORT RECIEVED. PT AWAKE, ALERT AND ORIENTED SITTING UP IN BED. NO S/S OF DISTRESS OR SOB NOTED. RESPIRATIONS ARE EASY AND REGULAR ON ROOM AIR. NO STATED COMPLAINTS. BED IN LOWEST LOCKED POSITION AND CALL LIGHT WITHIN REACH.
--- NOTE | 2019-06-13 08:45 | NUR ---
Spoke to Dr. Zavaleta regarding home IV antibiotics. New order received for Rocephin 2 GM IV daily for 7 days. Discussed home health care services and ability to administer home IV antibiotics with patient. When provided with a list of home health care agencies he chose [facility]. He states either himself, his , or his daughter that works in [employer] will be able to help him. Prescription faxed to [facility]. Awaiting response. Spoke to Dr. Torres regarding order for midline or PICC line for home IV antibiotics. New order received for PICC line. Notified Dr. Hernandes who is covering for Dr. Torres today that as long as IV antibiotics are arranged at home, patient can be discharged per Dr. Zavaleta. Home health care referral faxed to [facility].
--- NOTE | 2019-06-13 10:00 | NUR ---
DR. RAMÍREZ'S OFFICE NOTIFIED OF PICC CONSENT BEING FAXED. AWAITING A SIGNATURE.
[2019-06-13 12:00] VITALS: BP 150/69
--- NOTE | 2019-06-13 12:58 | NUR ---
Spoke to Glory at [facility]. Patient is covered at 100%. Start of care will be tomorrow. Pending PICC line placement.
--- NOTE | 2019-06-13 14:54 | NUR ---
Discharge instructions reviewed with patient/family. Patient receptive and verbalizes understanding. Follow-up care arranged. Written instructions given to patient/family. TWAN PYLE
--- NOTE | 2019-06-13 15:14 | NUR ---
Faxed midline information to [facility] and [facility]
[2019-06-13 16:07] LABS: ACID FAST SPEC PROCESSING Concentration (.)
[2019-07-26 14:07] LABS: ACID FAST CULTURE Negative (.)
== END 2019-06-13 14:54 | disposition home or self-care (01) | DRG 871 ==
LOC: ED 16:04 → EDHOLD 17:13 → 5E 17:13
PROVIDERS: Emergency Medicine; Internal Medicine Critical Care Medicine; ADMIT Internal Medicine
PROC: 5A09357 Assistance with Respiratory Ventilation, Less than 24 Consecutive Hours, Continuous Positive Airway Pressure (ICD-10-PCS; principal; 2019-06-08)
PROC: 5A09357 Assistance with Respiratory Ventilation, Less than 24 Consecutive Hours, Continuous Positive Airway Pressure (ICD-10-PCS; 2019-06-10)
PROC: 5A09357 Assistance with Respiratory Ventilation, Less than 24 Consecutive Hours, Continuous Positive Airway Pressure (ICD-10-PCS; 2019-06-11)
PROC: 5A09357 Assistance with Respiratory Ventilation, Less than 24 Consecutive Hours, Continuous Positive Airway Pressure (ICD-10-PCS; 2019-06-12)
PROC: 0BC58ZZ Extirpation of Matter from Right Middle Lobe Bronchus, Via Natural or Artificial Opening Endoscopic (ICD-10-PCS; 2019-06-12)
PROC: 0BC38ZZ Extirpation of Matter from Right Main Bronchus, Via Natural or Artificial Opening Endoscopic (ICD-10-PCS; 2019-06-12)
PROC: 0BC78ZZ Extirpation of Matter from Left Main Bronchus, Via Natural or Artificial Opening Endoscopic (ICD-10-PCS; 2019-06-12)
PROC: 0BC68ZZ Extirpation of Matter from Right Lower Lobe Bronchus, Via Natural or Artificial Opening Endoscopic (ICD-10-PCS; 2019-06-12)
PROC: 0BC48ZZ Extirpation of Matter from Right Upper Lobe Bronchus, Via Natural or Artificial Opening Endoscopic (ICD-10-PCS; 2019-06-12)
PROC: 0BCB8ZZ Extirpation of Matter from Left Lower Lobe Bronchus, Via Natural or Artificial Opening Endoscopic (ICD-10-PCS; 2019-06-12)
PROC: 0BC88ZZ Extirpation of Matter from Left Upper Lobe Bronchus, Via Natural or Artificial Opening Endoscopic (ICD-10-PCS; 2019-06-12)
PROC: 0BC18ZZ Extirpation of Matter from Trachea, Via Natural or Artificial Opening Endoscopic (ICD-10-PCS; 2019-06-12)
PROC: 0BC98ZZ Extirpation of Matter from Lingula Bronchus, Via Natural or Artificial Opening Endoscopic (ICD-10-PCS; 2019-06-12)
PROC: 5A09357 Assistance with Respiratory Ventilation, Less than 24 Consecutive Hours, Continuous Positive Airway Pressure (ICD-10-PCS; 2019-06-13)
DX: A40.3 Sepsis due to Streptococcus pneumoniae (principal); J18.9 Pneumonia, unspecified organism; J96.21 Acute and chronic respiratory failure with hypoxia; J44.1 Chronic obstructive pulmonary disease with (acute) exacerbation; J45.901 Unspecified asthma with (acute) exacerbation; F33.1 Major depressive disorder, recurrent, moderate; J44.0 Chronic obstructive pulmonary disease with (acute) lower respiratory infection; I10 Essential (primary) hypertension; N40.1 Benign prostatic hyperplasia with lower urinary tract symptoms; R33.8 Other retention of urine; K21.0 Gastro-esophageal reflux disease with esophagitis; E55.9 Vitamin D deficiency, unspecified; G30.1 Alzheimer's disease with late onset; F02.80 Dementia in other diseases classified elsewhere, unspecified severity, without behavioral disturbance, psychotic disturbance, mood disturbance, and anxiety; E66.01 Morbid (severe) obesity due to excess calories; J20.9 Acute bronchitis, unspecified; R91.8 Other nonspecific abnormal finding of lung field; G47.33 Obstructive sleep apnea (adult) (pediatric); Z87.891 Personal history of nicotine dependence; Z83.79 Family history of other diseases of the digestive system; Z68.39 Body mass index [BMI] 39.0-39.9, adult

== ENCOUNTER → 2019-08-04 | Outpatient (CLI) | payer OTHER ==
[~2019-08-04] MED LIST changes: +CYMBALTA30 MG PO; +NATURE'S BLEND F1 MG PO; +VENTOLIN INH; +VITAMIN D50000 UNIT PO
== END | disposition home or self-care (01) ==
LOC: CT 09:49
DX: R91.1 Solitary pulmonary nodule (principal)

== ENCOUNTER → 2019-08-27 | Outpatient (CLI) | payer OTHER | END | disposition home or self-care (01) | LOC: US 00:59 | DX: I65.23 Occlusion and stenosis of bilateral carotid arteries (principal) ==

== ENCOUNTER → 2021-03-15 | Outpatient (CLI) | payer OTHER ==
[2021-03-15 08:15] LABS: CREATININE 0.91 mg/dL (0.70-1.30)
== END | disposition home or self-care (01) ==
LOC: CT 07:37 → LAB 07:37 → CT 08:00
PROVIDERS: ATTEND Internal Medicine
DX: J84.10 Pulmonary fibrosis, unspecified (principal); R91.8 Other nonspecific abnormal finding of lung field

== ENCOUNTER → 2021-10-14 | Outpatient (CLI) | payer OTHER ==
[2021-10-14 14:29] LABS: BASO # 0.1 10*3/uL (0.0-0.1); BASO % 0.9 % (0.0-1.0); EOS # 0.2 10*3/uL (0.0-0.4); EOS % 2.9 % (1.0-4.0); HEMATOCRIT 52.1 % (42.0-52.0); LYMPH # 1.7 10*3/uL (1.3-4.4); LYMPH % 21.9 % (27.0-41.0); MEAN CELL VOLUME 88.2 fl (80.0-94.0); MEAN CORPUSCULAR HGB 29.4 pg (27.0-31.0); MEAN CORPUSCULAR HGB CONC 33.4 g/dl (33.0-37.0); MEAN PLATELET VOLUME 9.4 fl (9.6-12.3); MONO # 0.7 10*3/uL (0.1-1.0); MONO % 9.6 % (3.0-9.0); NEUT % 64.4 % (47.0-73.0); PLATELET COUNT AUTOMATED 263 10*3/uL (130-400); RED BLOOD COUNT 5.91 10*6/uL (4.50-5.90); RED CELL DISTRI WIDTH 14.4 % (0-14.5); WHITE BLOOD COUNT 7.7 10*3/uL (4.8-10.8)
[2021-10-14 14:50] LABS: ALKALINE PHOSPHATASE 126 U/L (45-117); BUN 11 mg/dl (7-24); CHLORIDE 108 mmol/L (98-107); CHOLESTEROL 149 mg/dL (<200); CREATININE 1.16 mg/dL (0.70-1.30); LDL CHOLESTEROL 90 mg/dL (9-159); POTASSIUM 3.9 mmol/L (3.5-5.1); SGOT/AST 12 IU/L (3-35); SGPT/ALT 19 U/L (12-78); SODIUM 141 mmol/L (136-145); T3 UPTAKE 33 % (31-39); THYROXINE (T4) TOTAL 6.2 ug/dl (4.5-12.1); TOTAL PROTEIN 7.1 gm/dL (6.4-8.2); TRIGLYCERIDES 121 mg/dl (<150)
== END | disposition home or self-care (01) ==
LOC: LAB 13:56
PROVIDERS: ATTEND Internal Medicine
DX: Z12.5 Encounter for screening for malignant neoplasm of prostate (principal); Z13.1 Encounter for screening for diabetes mellitus; Z13.6 Encounter for screening for cardiovascular disorders; Z12.31 Encounter for screening mammogram for malignant neoplasm of breast; D51.9 Vitamin B12 deficiency anemia, unspecified; E55.9 Vitamin D deficiency, unspecified; I10 Essential (primary) hypertension

== ENCOUNTER → 2021-11-10 | Outpatient (CLI) | payer OTHER | END | disposition home or self-care (01) | LOC: US 02:33 | PROVIDERS: ATTEND Urology | DX: N28.1 Cyst of kidney, acquired (principal); N32.89 Other specified disorders of bladder ==

== ENCOUNTER → 2022-05-25 | Outpatient (CLI) | payer OTHER | END | disposition home or self-care (01) | LOC: CARD 05-23 08:30 | PROVIDERS: ATTEND Internal Medicine | DX: I49.3 Ventricular premature depolarization (principal); I49.9 Cardiac arrhythmia, unspecified ==

== ENCOUNTER → 2022-09-26 | Outpatient (CLI) | payer OTHER ==
[2022-09-26 17:06] LABS: BASO # 0.1 10*3/uL (0.0-0.1); BASO % 0.6 % (0.0-1.0); EOS # 0.1 10*3/uL (0.0-0.4); EOS % 1.4 % (1.0-4.0); HEMATOCRIT 54.3 % (42.0-52.0); LYMPH # 1.6 10*3/uL (1.3-4.4); LYMPH % 18.5 % (27.0-41.0); MEAN CELL VOLUME 88.1 fl (80.0-94.0); MEAN CORPUSCULAR HGB 29.2 pg (27.0-31.0); MEAN CORPUSCULAR HGB CONC 33.1 g/dl (33.0-37.0); MONO # 0.9 10*3/uL (0.1-1.0); MONO % 10.3 % (3.0-9.0); PLATELET COUNT AUTOMATED 270 10*3/uL (130-400); RED BLOOD COUNT 6.16 10*6/uL (4.50-5.90); RED CELL DISTRI WIDTH 14.1 % (0-14.5); WHITE BLOOD COUNT 8.8 10*3/uL (4.8-10.8)
[2022-09-26 17:28] LABS: ALKALINE PHOSPHATASE 118 U/L (46-116); BUN 11 mg/dl (9-23); CHLORIDE 101 mmol/L (98-107); CHOLESTEROL 145 mg/dL (<200); LDL CHOLESTEROL 79 mg/dL (9-159); POTASSIUM 4.3 mmol/L (3.4-5.1); SGPT/ALT 14 U/L (10-49); THYROID STIM HORMONE (HS) 2.064 uIU/ml (0.550-4.780); TOTAL PROTEIN 6.8 gm/dL (6.0-8.0); TRIGLYCERIDES 157 mg/dl (<150)
[2022-09-26 17:56] LABS: VITAMIN D, 25-HYDROXY 39.3 ng/mL (30-100)
== END | disposition home or self-care (01) ==
LOC: LAB 16:42
PROVIDERS: ATTEND Internal Medicine
DX: I10 Essential (primary) hypertension (principal); E55.9 Vitamin D deficiency, unspecified; D51.9 Vitamin B12 deficiency anemia, unspecified; Z12.5 Encounter for screening for malignant neoplasm of prostate; Z13.0 Encounter for screening for diseases of the blood and blood-forming organs and certain disorders involving the immune mechanism; Z13.1 Encounter for screening for diabetes mellitus; Z13.220 Encounter for screening for lipoid disorders; Z13.228 Encounter for screening for other metabolic disorders; Z13.89 Encounter for screening for other disorder; Z13.9 Encounter for screening, unspecified; Z13.6 Encounter for screening for cardiovascular disorders

== ENCOUNTER → 2022-10-12 | Outpatient (CLI) | payer OTHER | END | disposition home or self-care (01) | LOC: CARD 00:19 | PROVIDERS: ATTEND Internal Medicine | DX: I48.21 Permanent atrial fibrillation (principal); I51.7 Cardiomegaly ==

== ENCOUNTER → 2023-01-08 | Outpatient (CLI) | payer OTHER | END | disposition home or self-care (01) | LOC: MRI 01-01 10:00 | PROVIDERS: ATTEND Internal Medicine | DX: M47.816 Spondylosis without myelopathy or radiculopathy, lumbar region (principal); M48.061 Spinal stenosis, lumbar region without neurogenic claudication; M51.26 Other intervertebral disc displacement, lumbar region ==

== ENCOUNTER → 2023-02-09 | Outpatient (CLI) | payer OTHER ==
[2023-02-09 07:42] LABS: BASO # 0.1 10*3/uL (0.0-0.1); BASO % 0.7 % (0.0-1.0); EOS # 0.2 10*3/uL (0.0-0.4); EOS % 1.6 % (1.0-4.0); HEMATOCRIT 51.8 % (42.0-52.0); LYMPH # 2.4 10*3/uL (1.3-4.4); LYMPH % 22.4 % (27.0-41.0); MEAN CELL VOLUME 88.9 fl (80.0-94.0); MEAN CORPUSCULAR HGB 29.5 pg (27.0-31.0); MEAN CORPUSCULAR HGB CONC 33.2 g/dl (33.0-37.0); MONO % 9.7 % (3.0-9.0); NEUT % 65.1 % (47.0-73.0); PLATELET COUNT AUTOMATED 251 10*3/uL (130-400); RED BLOOD COUNT 5.83 10*6/uL (4.50-5.90); RED CELL DISTRI WIDTH 14.8 % (0-14.5); WHITE BLOOD COUNT 10.7 10*3/uL (4.8-10.8)
[2023-02-09 08:06] LABS: ALKALINE PHOSPHATASE 144 U/L (46-116); BUN 8 mg/dl (9-23); CHLORIDE 104 mmol/L (98-107); POTASSIUM 4.4 mmol/L (3.4-5.1); SGPT/ALT 14 U/L (10-49); TOTAL PROTEIN 6.6 gm/dL (6.0-8.0)
== END | disposition home or self-care (01) ==
LOC: LAB 01:03 → US 15:00 → LAB 15:00
PROVIDERS: ATTEND Urology
DX: Z12.5 Encounter for screening for malignant neoplasm of prostate (principal); N28.1 Cyst of kidney, acquired; R53.83 Other fatigue; R33.9 Retention of urine, unspecified

== ENCOUNTER → 2023-02-13 | Outpatient (CLI) | payer OTHER | LOC: MRI 00:57 | PROVIDERS: ATTEND Internal Medicine | DX: F02.811 Dementia in other diseases classified elsewhere, unspecified severity, with agitation (principal) ==

== ENCOUNTER 2023-02-14 10:39 | Emergency (ER) | payer OTHER ==
[~2023-02-14] VITALS: Wt 107.5 kg
[2023-02-14 10:45] VITALS: BP 130/72
[2023-02-14 11:06] LABS: BASO # 0.1 10*3/uL (0.0-0.1); BASO % 0.9 % (0.0-1.0); EOS # 0.2 10*3/uL (0.0-0.4); EOS % 1.8 % (1.0-4.0); HEMATOCRIT 52.2 % (42.0-52.0); LYMPH # 1.4 10*3/uL (1.3-4.4); LYMPH % 14.1 % (27.0-41.0); MEAN CELL VOLUME 87.7 fl (80.0-94.0); MEAN CORPUSCULAR HGB 29.1 pg (27.0-31.0); MEAN CORPUSCULAR HGB CONC 33.1 g/dl (33.0-37.0); MEAN PLATELET VOLUME 9.1 fl (9.6-12.3); NEUT # 7.2 10*3/uL (2.3-7.9); PLATELET COUNT AUTOMATED 249 10*3/uL (130-400); RED BLOOD COUNT 5.95 10*6/uL (4.50-5.90); RED CELL DISTRI WIDTH 14.7 % (0-14.5); WHITE BLOOD COUNT 9.9 10*3/uL (4.8-10.8)
[2023-02-14 11:16] LABS: INTERNATIONAL NORM RATIO 1.1 (2.0-3.5)
[2023-02-14 11:33] LABS: BUN 12 mg/dl (9-23); CHLORIDE 106 mmol/L (98-107); POTASSIUM 4.2 mmol/L (3.4-5.1)
== END 2023-02-14 13:40 | disposition home or self-care (01) ==
LOC: ED 10:39
PROVIDERS: Emergency Medicine
DX: I67.82 Cerebral ischemia (principal); F41.9 Anxiety disorder, unspecified; K21.9 Gastro-esophageal reflux disease without esophagitis; M19.90 Unspecified osteoarthritis, unspecified site; Z98.890 Other specified postprocedural states

== ENCOUNTER → 2023-11-05 | Outpatient (CLI) | payer OTHER ==
[2023-11-05 08:30] LABS: BASO # 0.1 10*3/uL (0.0-0.1); BASO % 0.7 % (0.0-1.0); EOS # 0.2 10*3/uL (0.0-0.4); EOS % 2.3 % (1.0-4.0); HEMATOCRIT 53.3 % (42.0-52.0); LYMPH % 21.3 % (27.0-41.0); MEAN CELL VOLUME 88.8 fl (80.0-94.0); MEAN CORPUSCULAR HGB 29.3 pg (27.0-31.0); MEAN PLATELET VOLUME 8.9 fl (9.6-12.3); MONO % 10.7 % (3.0-9.0); NEUT # 6.1 10*3/uL (2.3-7.9); NEUT % 64.6 % (47.0-73.0); PLATELET COUNT AUTOMATED 226 10*3/uL (130-400); RED CELL DISTRI WIDTH 14.6 % (0-14.5); WHITE BLOOD COUNT 9.4 10*3/uL (4.8-10.8)
[2023-11-05 08:59] LABS: ALKALINE PHOSPHATASE 151 U/L (46-116); BUN 10 mg/dl (9-23); CHLORIDE 102 mmol/L (98-107); SGPT/ALT 10 U/L (5-49); TOTAL PROTEIN 6.8 gm/dL (6.0-8.0)
== END | disposition home or self-care (01) ==
LOC: US 10-30 14:00 → LAB 00:29 → US 08:00 → LAB 08:00
PROVIDERS: ATTEND Urology
DX: D40.0 Neoplasm of uncertain behavior of prostate (principal)

== ENCOUNTER 2023-12-02 12:46 | Emergency (ER) | payer OTHER ==
[~2023-12-02] VITALS: Ht 180.3 cm
[2023-12-02 13:16] LABS: BASO % 0.2 % (0.0-1.0); EOS % 0.2 % (1.0-4.0); HEMATOCRIT 54.3 % (42.0-52.0); LYMPH # 0.3 10*3/uL (1.3-4.4); LYMPH % 2.7 % (27.0-41.0); MEAN CELL VOLUME 86.5 fl (80.0-94.0); MEAN CORPUSCULAR HGB 28.7 pg (27.0-31.0); MEAN CORPUSCULAR HGB CONC 33.1 g/dl (33.0-37.0); MONO # 0.7 10*3/uL (0.1-1.0); MONO % 6.6 % (3.0-9.0); PLATELET COUNT AUTOMATED 204 10*3/uL (130-400); RED BLOOD COUNT 6.28 10*6/uL (4.50-5.90); RED CELL DISTRI WIDTH 14.6 % (0-14.5)
[2023-12-02] MEDS ORDERED: Ondansetron Hydrochloride 4 MG/2 ML VIAL IV ONE (13:25)
[2023-12-02 13:33] LABS: ALKALINE PHOSPHATASE 182 U/L (46-116); BUN 13 mg/dl (9-23); CHLORIDE 105 mmol/L (98-107); CPK 55 U/L (34-171); LIPASE 40 U/L (12-53); POTASSIUM 3.7 mmol/L (3.4-5.1); SGPT/ALT 21 U/L (5-49); TOTAL PROTEIN 7.1 gm/dL (6.0-8.0)
[2023-12-02 14:17] VITALS: BP 120/78
[2023-12-02] MEDS ORDERED: ONDANSETRON4 MG SL (14:57)
== END 2023-12-02 15:02 | disposition home or self-care (01) ==
LOC: ED 12:46
PROVIDERS: Physician Assistant Medical
DX: K52.9 Noninfective gastroenteritis and colitis, unspecified (principal); Z20.822 Contact with and (suspected) exposure to COVID-19; R11.2 Nausea with vomiting, unspecified; I48.91 Unspecified atrial fibrillation; F41.9 Anxiety disorder, unspecified; K21.9 Gastro-esophageal reflux disease without esophagitis; M19.90 Unspecified osteoarthritis, unspecified site; Z98.890 Other specified postprocedural states

== ENCOUNTER → 2023-12-13 | Outpatient (CLI) | payer OTHER ==
[~2023-12-13] MED LIST changes: +ONDANSETRON4 MG SL
== END | disposition home or self-care (01) ==
LOC: CARD 00:04
PROVIDERS: ATTEND Internal Medicine
DX: I48.21 Permanent atrial fibrillation (principal)

== ENCOUNTER → 2024-08-08 | Outpatient (CLI) | payer OTHER ==
[~2024-08-08] MED LIST changes: +AMLODIPINE BESYL5 MG PO; +ATARAX,VISTARIL10 MG PO; +DONEPEZIL HCL10 MG PO; +ELIQUIS5 M1 PO; +FINASTERIDE5 M1 PO; +LIPITOR20 MG PO; +LOSARTAN POTASS25 M1 PO; +Topicort 0.05%15 GM T; +ZOLOFT50 MG PO
[2024-08-08 11:45] LABS: BASO # 0.1 10*3/uL (0.0-0.1); BASO % 0.6 % (0.0-1.0); EOS # 0.2 10*3/uL (0.0-0.4); HEMATOCRIT 54.8 % (42.0-52.0); MEAN CELL VOLUME 88.5 fl (80.0-94.0); MEAN CORPUSCULAR HGB 28.1 pg (27.0-31.0); MEAN CORPUSCULAR HGB CONC 31.8 g/dl (33.0-37.0); MEAN PLATELET VOLUME 9.5 fl (9.6-12.3); MONO # 0.9 10*3/uL (0.1-1.0); MONO % 11.4 % (3.0-9.0); NEUT # 5.4 10*3/uL (2.3-7.9); NEUT % 67.1 % (47.0-73.0); PLATELET COUNT AUTOMATED 245 10*3/uL (130-400); RED BLOOD COUNT 6.19 10*6/uL (4.50-5.90)
[2024-08-08 12:10] LABS: ALKALINE PHOSPHATASE 187 U/L (46-116); BUN 12 mg/dl (9-23); CHLORIDE 107 mmol/L (98-107); CHOLESTEROL 123 mg/dL (<200); FREE T4 0.78 ng/dl (0.89-1.76); LDL CHOLESTEROL 55 mg/dL (9-159); SGPT/ALT 12 U/L (5-49); TOTAL PROTEIN 6.8 gm/dL (6.0-8.0); TRIGLYCERIDES 151 mg/dl (<150)
== END | disposition home or self-care (01) ==
LOC: LAB 11:08
PROVIDERS: ATTEND Internal Medicine
DX: Z12.5 Encounter for screening for malignant neoplasm of prostate (principal); I10 Essential (primary) hypertension; R97.20 Elevated prostate specific antigen [PSA]; E55.9 Vitamin D deficiency, unspecified; Z79.899 Other long term (current) drug therapy

== ENCOUNTER → 2024-12-06 | Outpatient (CLI) | payer OTHER | END | disposition home or self-care (01) | LOC: RAD 10:01 | PROVIDERS: ATTEND Internal Medicine | DX: R06.02 Shortness of breath (principal); R07.89 Other chest pain ==

== ENCOUNTER → 2025-01-09 | Outpatient (CLI) | payer OTHER ==
[~2025-01-09] MED LIST changes: +PANTOPRAZOLE SO40 MG PO; +Regadenoson 0.4 MG/5 ML SYR IV ONE
== END | disposition home or self-care (01) ==
LOC: CARD 00:10
PROVIDERS: ATTEND Internal Medicine
DX: R06.02 Shortness of breath (principal); I10 Essential (primary) hypertension

== ENCOUNTER → 2025-07-28 | Outpatient (CLI) | payer OTHER ==
[~2025-07-28] MED LIST changes: -Regadenoson 0.4 MG/5 ML SYR IV ONE
[2025-07-28 14:04] LABS: BASO # 0.0 10*3/uL (0.0-0.1); BASO % 0.4 % (0.0-1.0); EOS # 0.1 10*3/uL (0.0-0.4); EOS % 1.5 % (1.0-4.0); MEAN CELL VOLUME 86.9 fl (80.0-94.0); MEAN CORPUSCULAR HGB 28.4 pg (27.0-31.0); MEAN PLATELET VOLUME 9.1 fl (9.6-12.3); MONO # 0.7 10*3/uL (0.1-1.0); MONO % 8.7 % (3.0-9.0); NEUT # 5.7 10*3/uL (2.3-7.9); NEUT % 73.8 % (47.0-73.0); NUCLEATED RED BLOOD CELL 0.0 % (0.0-0.0); NUCLEATED RED BLOOD CELL 0.0 10*3/uL (0.0-0.0); PLATELET COUNT AUTOMATED 240 10*3/uL (130-400); RED CELL DISTRI WIDTH 14.8 % (0-14.5)
[2025-07-28 14:53] LABS: BUN 20 mg/dl (9-23); FREE T4 0.80 ng/dl (0.89-1.76); LDL CHOLESTEROL 68 mg/dL (9-159); SGPT/ALT 8 U/L (5-49)
[2025-07-28 14:54] LABS: VITAMIN D, 25-HYDROXY 35.7 ng/mL (30-100)
== END | disposition home or self-care (01) ==
LOC: LAB 01:47
PROVIDERS: ATTEND Internal Medicine
DX: R97.20 Elevated prostate specific antigen [PSA] (principal); R53.83 Other fatigue; E53.9 Vitamin B deficiency, unspecified; E55.9 Vitamin D deficiency, unspecified; I10 Essential (primary) hypertension; Z86.2 Personal history of diseases of the blood and blood-forming organs and certain disorders involving the immune mechanism